=== PATIENT | female | born 1985 | race Asian ===

== ENCOUNTER 2025-06-29 09:32 | Emergency (ER) | payer MEDICAID ==
[~2025-06-29] VITALS: Ht 162.6 cm; Wt 49.9 kg
[2025-06-29 09:46] VITALS: TEMP 98.7
[2025-06-29] MEDS ORDERED: IBUP-1490 PO (11:25)
[2025-06-29] MEDS ORDERED: METH-647 PO (11:25)
[2025-06-29] MEDS ORDERED: IBUPROFEN 600 MG TABLET ONE (11:41)
[2025-06-29] MEDS ORDERED: KETOROLAC TROMETHAMINE INJ 30 MG/ML VIAL ONE (11:47)
[2025-06-29] MEDS: KETOROLAC TROMETHAMINE INJ 30 MG/ML VIAL IM ONE (12:00)
[2025-06-29] MEDS: IBUPROFEN 600 MG TABLET PO ONE (12:00)
[2025-06-29 12:16] VITALS: BP 128/74; O2SAT 98
== END 2025-06-29 12:30 | disposition home or self-care (01) ==
LOC: ER 09:50
DX: S09.90XA Unspecified injury of head, initial encounter (principal); M54.50 Low back pain, unspecified; G44.309 Post-traumatic headache, unspecified, not intractable; W18.39XA Other fall on same level, initial encounter; Y93.89 Activity, other specified; Y92.89 Other specified places as the place of occurrence of the external cause; Y99.9 Unspecified external cause status
CPT/HCPCS: 99285; 70450; 96372; 72131; J1885